=== PATIENT | female | born 1960 | race Caucasian/White ===

== ENCOUNTER → 2018-02-12 | Outpatient (CLI) | payer BC ==
[2018-02-12 17:09] LABS: BASO % 0.2 %; BASO ABS # 0.02 K/uL (0-0.2); EOS % 3.8 %; EOS ABS # 0.39 K/uL (0-0.5); HEMATOCRIT 40.4 % (37-47); HEMOGLOBIN 14.2 g/dL (12.0-16.0); IG# 0.02 K/uL (0.00-0.02); LYMPH % 22.9 %; LYMPH ABS # 2.33 K/uL (1.2-3.4); MEAN CELL VOLUME 85.8 fL (80-100); MEAN CORPUSCULAR HEMOGLOBIN 30.1 pg (25-34); MEAN CORPUSCULAR HGB CONC 35.1 g/dl (32-36); MONO % 6.2 %; MONO ABS # 0.63 K/uL (0.11-0.59); NEUT % 66.7 %; NEUT ABS # 6.79 K/uL (1.4-6.5); PLATELET COUNT 283 K/uL (130-400); RED CELL DISTRIBUTION WIDTH CV 13.8 % (11.5-14.5); RED CELL DISTRIBUTION WIDTH SD 43.5 fL (36.4-46.3); WHITE BLOOD COUNT 10.18 K/uL (4.8-10.8)
[2018-02-12 17:34] LABS: BLOOD UREA NITROGEN 13 mg/dl (7-18); CALCIUM 8.5 mg/dl (8.5-10.1); CARBON DIOXIDE 30 mmol/L (21-32); CREATININE 0.69 mg/dl (0.60-1.20); GLUCOSE 112 mg/dl (70-99); POTASSIUM 3.8 mmol/L (3.5-5.1); SODIUM 138 mmol/L (136-145)
== END | disposition home or self-care (01) ==
LOC: C.CPL 16:40
PROVIDERS: ATTEND Orthopaedic Surgery
DX: M75.01 Adhesive capsulitis of right shoulder (principal)

== ENCOUNTER → 2018-03-01 | Day surgery (SDC) | payer BC ==
[2018-02-20 15:21] VITALS: Ht 167.6 cm; Wt 72.7 kg
[~2018-03-01] VITALS: Ht 167.6 cm; Wt 72.7 kg
[~2018-03-01] MED LIST: AMLO1CAP PO; ASPI81TA28 PO; ATOR10TA82 PO; ATROPINE SULFATE 0.1 MG/ML 5ML SYR IV PRN; BUPIVACAINE 0.5 % 5 MG/1 ML PF 10ML VIAL ONE; DEXAMETHASONE SOD INJ 4 MG/ML VIAL IV PRN; EpHEDrine SULFATE INJ 50 MG/ML AMP IV PRN; FENTANYL CITRATE INJ 50 MCG/1 ML 2 ML VIAL IV PRN; FENTANYL CITRATE INJ 50 MCG/1 ML 2 ML VIAL ONE; GLC/500 PO; KETO10TA PO; KETOROLAC TROMETHAMINE 30 MG/ML VIAL IV. PRN; LABETALOL HCL IV 5 MG/ML 20ML IV PRN; LACTATED RINGER'S 1000ML 1,000 ML IV SCH; LEVO125T5 PO; LIDOCAINE HCL 2% 2 ML VIAL (20MG/ML) ONE; METHYLPREDNISOLONE ACETATE 80 MG/ML VIAL ONE; METOCLOPRAMIDE HCL INJ 5 MG/ML 2 ML VIAL IV PRN; MIDAZOLAM HCL 1 MG/ML 2ML VIAL ONE; MoRPHine SULFATE 10 MG/ML CARP/VIAL IV PRN; ONDANSETRON INJ 2 MG/ML 2 ML VIAL IV PRN; OXYC-57 PO; OXYCODONE/ACETAMINOPHEN 5-325 TAB PO PRN; PHENYLEPHRINE 100MCG/ML 5ML SYR IV PRN; PROPOFOL IV EMULSION 10 MG/ML 20 ML VIAL ONE; ROPIVACAINE 0.5% 5 MG/ML 30 ML VIAL ONE; SODIUM CHLORIDE 0.9% 1000ML 1,000 ML IV SCH
--- NOTE | 2018-03-01 11:55 | History & Physical Bridge Note ---
H&P Re-Evaluation Bridge Note: I have examined the patient, reviewed the History & Physical and in the interval since the performance of the History & Physical I have noted the following changes of clinical significance: No changes noted
--- NOTE | 2018-03-01 13:02 | [facility] Post Operative Brief Note ---
Immediate Operative Summary Operative Date March 01, 2018. Pre-Operative Diagnosis Right shoulder adhesive capsulitis, chronic pain Post-Operative Diagnosis Same Procedure(s) Performed Right Shoulder Manipulation Under Anesthesia Surgeon Dr. Ria Staton Trap Operator Surgeon(s) 0 Estimated Blood Loss None Findings Consistent with Post-Op Diagnosis Specimens None Drains None Anesthesia Type MAC Regional Complication(s) none Disposition Disposition: Recovery Room / PACU
--- NOTE | 2018-03-01 13:08 | Discharge Instructions-SurgCtr ---
Discharge Instructions Date of Service March 01, 2018. Visit Reason for Visit: Right Shoulder Adhesive Capsulitis, Chronic Pain Discharge Discharge Diagnosis / Problem: SAME ABOVE Discharge Goals Goal(s): Decrease discomfort, Improve function Activity Recommendations Activity Limitations: as noted below Lifting Limitations: gradually increase as tolerated Exercise/Sports Limitations: gradually increase as tolerated Shower/Bathe: no limitations Anesthesia . Post Anesthesia Instructions: If you have had General Anesthesia or IV Sedation: * Do not drive today. * Resume driving when surgeon permits. * Do not make important decisions or sign legal documents today. * Call surgeon for: 1. Temperature elevations greater than 101 degrees F. 2. Uncontrollable pain. 3. Excessive bleeding. 4. Persistent nausea and vomiting. 5. Medication intolerance (nausea, vomiting or rash). * For nausea and vomiting use only clear liquids such as: tea, soda, bouillon until nausea subsides, then gradually increase diet as tolerated. * If you have any concerns or questions, call your surgeon's office. If physician is unavailable and it is an emergency, call 911 or go to the nearest emergency room. . Instructions / Follow-Up Instructions / Follow-Up MEDICATIONS: * Resume previous medications unless instructed otherwise by your surgeon. * Always take pain medication on a full stomach or with food to avoid upset stomach. * Do not drink alcohol or drive while taking narcotics. * Ibuprofen or Tylenol may be taken if narcotic not needed. SPECIAL CARE INSTRUCTIONS: __ None X__ Keep extremity elevated and iced x 48 hours; apply ice 20-30 minutes 8-10 times/day. May remove at night. _X_ Sling (REMOVE AFTER 24 HOURS) __24 hrs/day __ Remove at night __ Shoulder Immobilizer __ 24 hrs/day __ Remove at night __ Dressing __ Maintain until seen in office, may shower with plastic over site __ Remove dressings in 24-48 hours and then may shower __ Cover incisions with band-aids after showering __ Do not remove steri-strips Call physician if chills or temperature rises above 102 degrees or pain unrelieved by prescribed pain medications at . . Diet Recommendations Home Diet: no limitations Fluid Restriction: None Procedures Procedures Performed: Right Shoulder Manipulation Under Anesthesia Pending Studies Studies pending at discharge: no Work Instructions Lifting Limitations: none Medical Emergencies . Who to Call and When: Medical Emergencies: If at any time you feel your situation is an emergency, please call 911 immediately. . Non-Emergent Contact Non-Emergency issues call your: Primary Care Provider Call Non-Emergent contact if: temperature is above 101.5 . . "Provider Documentation" section prepared by Pavel Montaño. .
[2018-03-01 14:00] VITALS: BP 130/67; PULSE 50; TEMP 36.2; O2SAT 98
--- NOTE | 2018-03-01 14:00 | Anesthesia Progress Nt - [facility] ---
Anesthesia Post Op Note Date & Time March 01, 2018 at 13:59 Vital Signs Pain Intensity: 0 Vital Signs Past 12 Hours Date Time Temp Pulse Resp B/P (MAP) Pulse Ox O2 Delivery O2 Flow Rate FiO2 03/01/18 13:38 54 16 141/73 (95) 99 Room Air 03/01/18 13:31 137/80 03/01/18 13:31 36.1 96 Room Air 03/01/18 13:28 50 17 97 03/01/18 13:28 49 17 03/01/18 13:26 132/71 18 13:23 51 14 18 13:23 51 14 99 18 13:22 50 15 99 18 13:22 50 15 03/01/18 13:21 129/72 18 13:17 52 16 18 13:17 51 16 99 18 13:16 125/72 18 13:12 53 16 03/01/18 13:12 53 16 99 03/01/18 13:11 116/67 03/01/18 13:10 36.3 53 20 116/67 99 Mask 6 03/01/18 12:47 50 7 100 18 12:47 50 18 12:46 119/65 18 12:45 53 03/01/18 12:45 53 26 99 03/01/18 12:42 126/67 18 12:40 50 18 12:40 50 7 99 18 12:36 105/69 18 12:35 51 03/01/18 12:35 50 14 100 03/01/18 12:31 107/65 03/01/18 12:30 51 17/18 12:30 50 10 100 03/01/18 12:29 53 03/01/18 12:29 53 16 99 03/01/18 12:26 125/65 03/01/18 12:24 54 10 99 17/18 12:24 54 17/18 12:21 130/75 17/18 12:19 56 5 100 17/18 12:19 59 12 144/77 (99) 99 Mask 4 03/01/18 12:19 57 03/01/18 12:18 144/77 03/01/18 12:14 65 0 03/01/18 12:09 50 0 03/01/18 12:04 51 03/01/18 11:59 52 0 03/01/18 11:54 51 0 03/01/18 11:49 52 0 03/01/18 11:44 50 0 03/01/18 11:39 51 0 03/01/18 11:34 52 0 03/01/18 11:29 51 0 03/01/18 11:24 55 0 03/01/18 11:19 53 0 03/01/18 11:14 52 0 03/01/18 11:09 56 0 03/01/18 11:04 53 0 03/01/18 10:59 52 0 03/01/18 10:28 36.8 55 16 143/79 (100) 98 Room Air Notes Mental Status: alert / awake / arousable, participated in evaluation Pt Amnestic to Procedure: Yes Nausea / Vomiting: adequately controlled Pain: adequately controlled Airway Patency, RR, SpO2: stable & adequate BP & HR: stable & adequate Hydration State: stable & adequate Anesthetic Complications: no major complications apparent
--- NOTE | 2018-03-01 17:22 | OPERATIVE REPORT ---
DATE OF OPERATION: 03/01/2018 PREOPERATIVE DIAGNOSIS: Adhesive capsulitis of the right shoulder. POSTOPERATIVE DIAGNOSIS: Same. PROCEDURE: Manipulation under anesthesia of the right shoulder. SURGEON: Timbo Staton DO. DAM WORKER: None. ANESTHESIA: MAC with a left interscalene nerve block. COMPLICATIONS: None. CONDITION: Stable to PACU. INDICATIONS: Preeti is a pleasant 57-year-old female who presented to my office with a 6-month history of increasing tightness and pain in her right shoulder. Clinical examination was diagnostic for adhesive capsulitis of the right shoulder. After failing conservative treatment, she elected to undergo manipulation. DETAILS OF PROCEDURE: On 03/01/2018, she arrived at [facility] for the above procedure. She was seen in the preoperative holding area, and the operative extremity was identified and signed. She was given an interscalene nerve block. She was taken back to the operating room, laid on table in supine position, and put under basic sedation. A timeout was done, and the patient's operative extremity was properly identified. On preoperative physical examination, she had about 80 degrees of abduction and 30 degrees of external rotation. A gentle manipulation was done under anesthesia. I was able to get full range of motion of her shoulder. She had about 120 degrees of abduction with the scapula stabilized, 100 degrees of external rotation, and 50 degrees of internal rotation. The glenohumeral joint was then injected with 80 mg of Depo-Medrol and 5 mL of Marcaine. She was then placed in an arm sling and taken to the postanesthesia care unit in stable condition. She tolerated procedure well. I attest to the content of the Intraoperative Record and any orders documented therein. Any exception s are noted below.
== END | disposition home or self-care (01) ==
LOC: X.SURG 09:44
PROVIDERS: ATTEND Orthopaedic Surgery
DX: M75.01 Adhesive capsulitis of right shoulder (principal); E11.9 Type 2 diabetes mellitus without complications; E78.5 Hyperlipidemia, unspecified; E78.00 Pure hypercholesterolemia, unspecified; I10 Essential (primary) hypertension; Z83.3 Family history of diabetes mellitus; Z79.84 Long term (current) use of oral hypoglycemic drugs; Z79.899 Other long term (current) drug therapy